=== PATIENT | female | born 1990 ===

== ENCOUNTER 2017-06-23 11:31 | Emergency (ER) | payer SELFPAY ==
[2017-06-23 11:41] VITALS: TEMP 98; O2SAT 98
--- NOTE | 2017-06-23 12:06 | C.PDOC ---
History Of Present Illness 26-YEAR-OLD FEMALE, PRESENTS TO THE EMERGENCY DEPARTMENT WITH COMPLAINTS OF Time Seen by Provider: 06/23/17 11:58 Chief Complaint (Nursing): Upper Extremity Problem/Injury Past Medical History Reviewed: Historical Data, Nursing Documentation, Vital Signs Vital Signs: Last Vital Signs Temp 98 F 06/23/17 11:39 Pulse 83 06/23/17 11:39 Resp 16 06/23/17 11:39 BP 120/77 06/23/17 11:39 Pulse Ox 98 06/23/17 11:39 Family History: States: No Known Family Hx - Social History Hx Alcohol Use: No Hx Substance Use: No ED Course And Treatment O2 Sat by Pulse Oximetry: 98 Disposition - Disposition - Scribe Statement The provider has reviewed the documentation as recorded by the Scribe (Brian Anderson) All medical record entries made by the Scribe were at my direction and personally dictated by me. I have reviewed the chart and agree that the record accurately reflects my personal performance of the history, physical exam, medical decision making, and the department course for this patient. I have also personally directed, reviewed, and agree with the discharge instructions and disposition.
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
[2017-06-23 13:22] VITALS: BP 122/72; PULSE 72; RESP 18
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
== END 2017-06-23 13:22 | disposition home or self-care (01) ==
LOC: C.ER 11:31
DX: S10.93XA Contusion of unspecified part of neck, initial encounter (principal); S40.022A Contusion of left upper arm, initial encounter; T71.9XXA Asphyxiation due to unspecified cause, initial encounter; Y04.0XXA Assault by unarmed brawl or fight, initial encounter